=== PATIENT | female | born 1940 ===

== ENCOUNTER 2016-11-30 16:38 | Emergency (ER) | payer MEDICARE, BC ==
[2016-11-30 16:48] VITALS: BP 183/78; O2SAT 99
[2016-11-30] MEDS ORDERED: Phenylephrine 0.5% Nasal Spray (15 ml) ONE (17:08)
[2016-11-30 17:10] VITALS: BMI 30.9
--- NOTE | 2016-11-30 17:41 | ED PDOC ---
Arrival/HPI - General Chief Complaint: ENT Problem Time Seen by Provider: 11/30/16 17:05 Historian: Patient - History of Present Illness Narrative History of Present Illness (Text): 11/30/16 17:05 Alyssa Solis is a 76 year old female, whose past medical history includes Nasal septal perforation, who presents to the emergency department complaining of a 1.5 hour duration nosebleed prior to arrival. Patient denies taking any bloodthinners of any kind, any trauma, fever, or any other complaints at this time. Time/Duration: 1-3 hours (1.5 hours) Symptom Onset: Gradual Symptom Course: Unchanged Severity Level: Mild Activities at Onset: Rest Context: Home Past Medical History - Provider Review Nursing Documentation Reviewed: Yes - Infectious Disease Hx of Infectious Diseases: None - Tetanus Immunization Tetanus Immunization: Unknown - Cardiac Hx Hypertension: Yes - Pulmonary Hx Respiratory Disorders: No - Neurological Hx Neurological Disorder: No - HEENT Hx HEENT Disorder: Yes Hx Epistaxis: Yes (ADMITTED 2 X 2012) - Renal Hx Renal Disorder: No - Endocrine/Metabolic Hx Diabetes Mellitus Type 2: Yes - Hematological/Oncological Hx Blood Transfusions: Yes Hx Blood Transfusion Reaction: No - Integumentary Hx Dermatological Disorder: No - Musculoskeletal/Rheumatological Hx Falls: Yes - Gastrointestinal Hx Gastrointestinal Disorders: No - Genitourinary/Gynecological Hx Genitourinary Disorders: No - Psychiatric Hx Anxiety: Yes Hx Depression: Yes Hx Emotional Abuse: No Hx Physical Abuse: No Hx Substance Use: No - Past Surgical History Past Surgical History: No Previous - Surgical History Other/Comment: sx one month ago for epistaxis - Anesthesia Hx Anesthesia Reactions: No Hx Malignant Hyperthermia: No - Suicidal Assessment Feels Threatened In Home Enviroment: No Family/Social History - Physician Review Nursing Documentation Reviewed: Yes Family/Social History: No Known Family HX Smoking Status: Never Smoked Hx Alcohol Use: No Hx Substance Use: No Hx Substance Use Treatment: No Allergies/Home Meds Allergies/Adverse Reactions: Allergies No Known Allergies Allergy (Verified 11/30/16 17:09) Home Medications: Home Meds Medication Instructions Recorded Confirmed Paroxetine HCl [Paroxetine] 20 mg PO DAILY 08/25/12 06/21/16 Sitagliptin Phosphate [Januvia] 50 mg PO DAILY 02/18/15 06/21/16 GlipiZIDE [Glipizide] 10 mg PO DAILY 06/21/16 06/21/16 Metformin HCl [Glucophage] 1,000 mg PO BID 06/21/16 06/21/16 Risperidone [Risperdal] 3 mg PO BID 06/21/16 06/21/16 Review of Systems - Review of Systems Constitutional: absent: Fevers, Night Sweats Eyes: absent: Vision Changes ENT: Epistaxis. absent: Hearing Changes Respiratory: absent: SOB, Cough Cardiovascular: absent: Chest Pain, Palpitations, ROD Gastrointestinal: absent: Abdominal Pain, Nausea, Vomiting Genitourinary Female: absent: Dysuria, Frequency, Urine Output Changes Musculoskeletal: absent: Back Pain, Neck Pain Skin: absent: Rash, Pruritis Neurological: absent: Headache, Dizziness Endocrine: absent: Polyuria Hemo/Lymphatic: Easy Bleeding. absent: Easy Bruising Psychiatric: absent: Depression Physical Exam - Physical Exam Narrative Physical Exam (Text): Head: Atraumatic. Normocephalic. Eyes: PERRL. EOMI. Conjunctivae are not pale. ENT: Patient with active bleeding from both nares and thick blood clots, septal perforation noted, bleeding appears to be around prior perforation, no pus or drainange, no facial swelling, no angioedema, posterior pharynx with postnasal bleeding, no pharyngeal erythema or exudates or abscess. Neck: Supple. No meningeal signs. Cardiovascular: Regular rate. Regular rhythm. Distal pulses are 2+ and symmetric. Pulmonary/Chest: No evidence of respiratory distress. Clear to auscultation bilaterally. No wheezing, rales or rhonchi. Skin: Skin is warm and dry. No petechiae. No purpura. Neurological: Alert, awake, and oriented. No facial droop. Motor and sensory exam intact. Psychiatric: Good eye contact. Normal interaction, affect, and behavior. Vital Signs Reviewed: Yes Vital Signs Temp Pulse Resp BP Pulse Ox 11/30/16 21:20 16 99 11/30/16 21:03 98.1 F 67 16 99 11/30/16 16:47 98.2 F 65 18 183/78 H 99 Temperature: Afebrile Blood Pressure: Hypertensive Pulse: Regular Respiratory Rate: Normal Appearance: Positive for: Comfortable, Uncomfortable Pain Distress: Moderate Medical Decision Making ED Course and Treatment: 11/30/16 18:36 Patient seen upon arrival, found to have profuse nasal bleeding from both nares , left greater than right. Blood clots noted in nasopharynx and oropharynx. Patient with no facial edema noted. No chest pain or respiratory distrses noted. Nasal tray and suction catheter to bedside. History reviewed patient noted to have septal perforation and frequent recurrent nosebleeds. She is cv stable and comfortable. Direct pressure applied with persistent bleeding. Nasal bleeding/clots suctioned, septal perforation noted, she has prior history of this. Patient had murocel packing placed with neosynephrine spray to both nares. Direct pressure applied and bleeding controlled on re-exam at 1745 at 1830. Due to significant past ENT history with perforation, Dr. Raygoza, ENT consulted will evaluate patient in the ED. CV stable on re-exam, labs unremarkable. 11/30/16 19:07 Blood pressure improved. Bleeding controlled. No pain. Augmentin ordered. Patient endorsed to Dr. Driver pending ENT evaluation, disposition. Family and patient updated. - Lab Interpretations Lab Results: 11/30/16 17:25 11/30/16 17:25 Lab Results 11/30/16 18:30: Blood Type A POSITIVE, Antibody Screen Negative, BBK History Checked Patient has bt 11/30/16 17:25: Sodium 140, Potassium 4.1, Chloride 102, Carbon Dioxide 30, Anion Gap 12, BUN 19, Creatinine 0.7, Est GFR ( Amer) > 60, Est GFR (Non- Af Amer) > 60, Random Glucose 120 H, Calcium 8.9, Total Bilirubin 0.5, AST 18, ALT 30, Alkaline Phosphatase 50, Total Protein 7.3, Albumin 4.1, Globulin 3.2, Albumin/Globulin Ratio 1.3 11/30/16 17:25: PT 11.6, INR 1.07, APTT 26.8 11/30/16 17:25: WBC 7.9, RBC 4.14, Hgb 12.8, Hct 38.0, MCV 91.8, MCH 30.9, MCHC 33.7, RDW 16.5 H, Plt Count 148, MPV 10.3, Gran % 73.1 H, Lymph % (Auto) 14.9 L , [place] % (Auto) 11.5 H, Eos % (Auto) 0.4 L, Baso % (Auto) 0.1, Gran # 5.75, Lymph # 1.2, [place] # 0.9 H, Eos # 0.0, Baso # 0.01 - Medication Orders Current Medication Orders: Discontinued Medications Amoxicillin/Clavulanate Potassium (Augmentin 875 Mg-125 Mg Tab) 1 tab PO STAT STA PRN Reason: Protocol Stop: 11/30/16 18:42 Last Admin: 11/30/16 19:06 Dose: 1 tab Phenylephrine HCl (Anthony-Synephrine 0.5% Nasal [place]) Confirm Administered Dose 15 ml .ROUTE .STK-MED ONE Stop: 11/30/16 17:09 - Scribe Statement The provider has reviewed the documentation as recorded by the Subha Burrows Provider Scribe Attestation: All medical record entries made by the Scribe were at my direction and personally dictated by me. I have reviewed the chart and agree that the record accurately reflects my personal performance of the history, physical exam, medical decision making, and the department course for this patient. I have also personally directed, reviewed, and agree with the discharge instructions and disposition. Disposition/Present on Arrival - Present on Arrival Any Indicators Present on Arrival: No History of DVT/PE: No History of Uncontrolled Diabetes: No Urinary Catheter: No History of Decub. Ulcer: No History Surgical Site Infection Following: None - Disposition Have Diagnosis and Disposition been Completed?: Yes Diagnosis: Epistaxis Disposition: HOME/ ROUTINE Disposition Time: 19:00 Patient Plan: Observation Condition: GOOD Discharge Instructions (ExitCare): Nosebleed (ED) Prescriptions: Amoxicillin 875 mg PO BID #14 tab Referrals: Brenden Hernandez MD [Primary Care Provider] - Follow up with primary
[2016-11-30 17:44] LABS: ALB/GLOB RATIO 1.3 (1.1-1.8); ALKALINE PHOSPHATASE 50 U/L (38-133); ALT/SGPT 30 U/L (7-56); AST/SGOT 18 U/L (15-39); BILIRUBIN,TOTAL 0.5 mg/dL (0.2-1.3); BLOOD UREA NITROGEN 19 mg/dL (7-21); CALCIUM 8.9 mg/dL (8.4-10.5); CARBON DIOXIDE 30 mmol/L (21-33); CHLORIDE 102 mmol/L (98-107); GFR AFRICAN-AMERICAN > 60; GLUCOSE,RANDOM 120 mg/dL (70-110); POTASSIUM 4.1 mmol/L (3.6-5.0); SODIUM 140 mmol/L (132-148); TOTAL PROTEIN 7.3 g/dL (5.8-8.3)
[2016-11-30 17:45] LABS: MEAN CELL VOLUME 91.8 fL (80.0-105.0); MEAN CORPUSCULAR HEMOGLOBIN 30.9 pg (25.0-35.0); MEAN CORPUSCULAR HGB CONC 33.7 g/dl (31.0-37.0); PLATELET COUNT 148 10^3/uL (120.0-450.0); RED CELL DISTRIBUTION WIDTH 16.5 % (11.5-14.5); WHITE BLOOD COUNT 7.9 10^3/ul (4.5-11.0)
[2016-11-30 17:46] LABS: BASO # 0.01 K/mm3 (0.0-2.0); BASO % 0.1 % (0.0-3.0); EOS % 0.4 % (1.5-5.0); GRAN # 5.75 (1.4-6.5); GRAN % 73.1 % (50.0-68.0); LYMPH # 1.2 (1.2-3.4); LYMPH % 14.9 % (22.0-35.0); MEAN PLATELET VOLUME 10.3 fl (7.0-11.0); MONO # 0.9 (0.1-0.6); MONO % 11.5 % (1.0-6.0)
[2016-11-30 18:00] LABS: INR 1.07 (0.93-1.08); PARTIAL THROMBOPLASTIN TIME 26.8 Seconds (23.7-30.8)
[2016-11-30] MEDS ORDERED: Amoxicillin-Clav 875-125 mg Tab PO STA (18:41)
--- NOTE | 2016-11-30 21:03 | ED PDOC ---
Physical Exam Vital Signs Reviewed: Yes Vital Signs Temp Pulse Resp BP Pulse Ox 11/30/16 16:47 98.2 F 65 18 183/78 H 99 Temperature: Afebrile Blood Pressure: Hypertensive Pulse: Regular Respiratory Rate: Normal Appearance: Positive for: Well-Appearing, Non-Toxic, Comfortable Pain Distress: None Mental Status: Positive for: Alert and Oriented X 3 Medical Decision Making ED Course and Treatment: 11/30/16 21:01 Case endorsed to me by , pending reevaluation and disposition. Patient is a 76 year old female who presents to the emergency department complaining of 1.5 hour duration of epistaxis. Bleeding stopped after nasal packing. Patient was evaluated by ENT resident who recommends that patient is stable for discharge. Patient advised to present to ed for recurrent bleeding. Advised to followup with ENT/PMD for packing removal and further evaluation within few days. - Lab Interpretations Lab Results: 11/30/16 17:25 11/30/16 17:25 Lab Results 11/30/16 18:30: Blood Type A POSITIVE, Antibody Screen Negative, BBK History Checked Patient has bt 11/30/16 17:25: Sodium 140, Potassium 4.1, Chloride 102, Carbon Dioxide 30, Anion Gap 12, BUN 19, Creatinine 0.7, Est GFR ( Amer) > 60, Est GFR (Non- Af Amer) > 60, Random Glucose 120 H, Calcium 8.9, Total Bilirubin 0.5, AST 18, ALT 30, Alkaline Phosphatase 50, Total Protein 7.3, Albumin 4.1, Globulin 3.2, Albumin/Globulin Ratio 1.3 11/30/16 17:25: PT 11.6, INR 1.07, APTT 26.8 11/30/16 17:25: WBC 7.9, RBC 4.14, Hgb 12.8, Hct 38.0, MCV 91.8, MCH 30.9, MCHC 33.7, RDW 16.5 H, Plt Count 148, MPV 10.3, Gran % 73.1 H, Lymph % (Auto) 14.9 L , [place] % (Auto) 11.5 H, Eos % (Auto) 0.4 L, Baso % (Auto) 0.1, Gran # 5.75, Lymph # 1.2, [place] # 0.9 H, Eos # 0.0, Baso # 0.01 I have reviewed the lab results: Yes - Medication Orders Current Medication Orders: Discontinued Medications Amoxicillin/Clavulanate Potassium (Augmentin 875 Mg-125 Mg Tab) 1 tab PO STAT STA PRN Reason: Protocol Stop: 11/30/16 18:42 Last Admin: 11/30/16 19:06 Dose: 1 tab Phenylephrine HCl (Anthony-Synephrine 0.5% Nasal [place]) Confirm Administered Dose 15 ml .ROUTE .STK-MED ONE Stop: 11/30/16 17:09 - Scribe Statement The provider has reviewed the documentation as recorded by the Mikeibe Sreedhar Chakraborty Provider Attestation: All medical record entries made by the Mikeibpaul were at my direction and personally dictated by me. I have reviewed the chart and agree that the record accurately reflects my personal performance of the history, physical exam, medical decision making, and the department course for this patient. I have also personally directed, reviewed, and agree with the discharge instructions and disposition. Disposition/Present on Arrival - Present on Arrival Any Indicators Present on Arrival: No History of DVT/PE: No History of Uncontrolled Diabetes: No Urinary Catheter: No History of Decub. Ulcer: No History Surgical Site Infection Following: None - Disposition Have Diagnosis and Disposition been Completed?: Yes Diagnosis: Epistaxis Disposition: HOME/ ROUTINE Disposition Time: 21:20 Condition: GOOD Discharge Instructions (ExitCare): Nosebleed (ED) Prescriptions: Amoxicillin 875 mg PO BID #14 tab Referrals: Brenden Hernandez MD [Primary Care Provider] - Follow up with primary
[2016-11-30 21:04] VITALS: PULSE 67; RESP 16; TEMP 98.1
--- NOTE | 2016-12-01 09:15 | CON ---
DATE: 11/30/2016 REASON FOR CONSULTATION: Epistaxis. HISTORY OF PRESENT ILLNESS: The patient is a 76-year-old female. Past medical history includes nasa l septal perforation with history of recurrent epistaxis, comes to the ED complaining of an hour-and- a-half duration nose bleed prior to arrival. The patient denies taking any sort of blood thinners, t rauma or any other complaints at this time. The patient packed bilaterally by ED staff with Merocel. The patient was seen and examined. The patient and stating they do not want packing remove d at bedside. The patient's is present during examination as well as nursing staff. Denies any chest pain, shortness of breath, nausea, vomiting, diarrhea, fevers, night sweats, falls, dizzine ss. PAST SURGICAL HISTORY: Per HPI. ALLERGIES: No known drug allergies. HOME MEDICATIONS: Paroxetine, sitagliptin, glyburide, metformin, risperidone. PHYSICAL EXAMINATION: VITAL SIGNS: Temperature 98.2, pulse 65, respiratory 18, blood pressure is 183/78, pulse ox 99. ___ _. GENERAL: Alert and oriented,, mild distress. EYES: EOMI, PERRLA. MOUTH: Moist mucous membranes. Poor dentition. No bleeding in oral cavity or oropharynx. NOSE: Packing in bilateral nares and placed Merocel. I attempted to change packing; however, packin g change refused by the patient and . However, hemostasis is achieved at this time. NECK: Supple. Trachea midline. RESPIRATORY: Aerating well. No stridor, nonlabored breathing. LABORATORY DATA: Hemoglobin 12.8, hematocrit 38, white count 7.9, platelets 148. ASSESSMENT AND PLAN: The patient is a 76-year-old female with bilateral nasal packing currently in p lace. History of septal perforation. 1. Would recommend the patient stay for at least 24 hours on a monitored floor. The patient does wright ve bilateral nasal packing; however, the patient and are refusing the same. 2. Recommends Augmentin or anti-staphylococcal antibiotic while packing is in place. The patient sh ould remain packing for at least 48 or 72 hours. If the patient is discharged home, stressed the pat ient should maintain nasal packing for at least 48-72 hours. Monitor hemoglobin and hematocrit as ne eded. Hemostasis adequate. At this time, the patient is not actively bleeding. Discussed the patie nt in detail with nursing, Emergency Department attending physician as well as the patient and brianna shah Juan Raygoza DO cc: [id number] TT: 12/01/2016 09:14:24 Confirmation # [id number] Dictation # [id number]
== END 2016-11-30 21:20 | disposition home or self-care (01) ==
LOC: ED 16:38
DX: R04.0 Epistaxis (principal); I10 Essential (primary) hypertension